=== PATIENT | male | born 1970 | race Caucasian/White ===

== ENCOUNTER 2017-01-23 10:56 | Day surgery (SDC) | payer BC ==
[2017-01-21 10:18] VITALS: BMI 27.9
[~2017-01-23 10:56] MED LIST: LACTATED RINGERS 1,000 ML IV SCH; LIDOCAINE 1% 20 ML VIAL (10MG/ML) FOR IV START INTRADERMA PRN
[2017-01-23 11:08] VITALS: TEMP 97.9
[2017-01-23] MEDS ORDERED: LIDOCAINE 1% INJ 10MG/ML (20 ML MDV) ONE (11:47)
[2017-01-23] MEDS ORDERED: GLYCOPYRROLATE 0.2 MG/ML 2 ML VIAL ONE (11:47)
[2017-01-23] MEDS ORDERED: PROPOFOL 10 MG/ML 20 ML VIAL IV ONE (11:47)
[2017-01-23] MEDS ORDERED: MIDAZOLAM 2 MG/2 ML VIAL ONE (11:47)
--- NOTE | 2017-01-23 11:58 | P.PCN ---
Date of Procedure: 01/23/17 Procedure(s) Performed: BRIEF HISTORY: Patient is a 46-year-old, pleasant, , scheduled for an upper endoscopy with a possible dilation as a part of evaluation of intermittent dysphagia to solids for the last 5 years duration. PROCEDURE PERFORMED: Esophagogastroduodenoscopy with biopsy. PREOPERATIVE DIAGNOSIS: Intermittent dysphagia to solids or 5 years from IV sedation per anesthesia. PROCEDURE: After informed consent was obtained, the patient was brought into the endoscopy unit. IV sedation was administered by Anesthesia under continuous monitoring. Initially the Olympus GIF-140 video endoscope was inserted into the mouth. Esophagus intubated without any difficulty. It was gradually advanced into the stomach and duodenum and carefully examined. The bulb and the second part of the duodenum appeared normal. The scope at this time was withdrawn to the stomach, adequately insufflated with air, and upon careful examination, mucosa of the antrum, had mild patchy areas of erythema and biopsies were done from this area. The body, cardia and the fundus appeared normal. The scope was then withdrawn into the esophagus. The GE junction was located at 39 cm from the incisors. There were linear erosions with thickened mucosal esophageal folds as well as longitudinal ridges, furrows and circumferential rings involving the entire esophagus consistent with eosinophilic esophagitis and multiple biopsies were done from this area. The proximal esophagus was normal and the patient tolerated the procedure well. IMPRESSION: 1. Mucosal fold thickening with longitudinal ridges and furrows involving the mid and distal esophagus consistent with eosinophilic esophagitis status post multiple biopsies. 2. No esophageal stricture 3. Mild antral gastritis. RECOMMENDATIONS: The findings of this examination were discussed with the patient as well as his family. He was advised to follow with the biopsy results. At this time he will be started on Prilosec 20 mg twice daily and he' ll be seen in office in 2 weeks.
[2017-01-23 12:32] VITALS: BP 110/67; PULSE 78; RESP 16
== END 2017-01-23 13:05 | disposition home or self-care (01) ==
LOC: ORWHC2ENDO 10:56
PROVIDERS: ATTEND Internal Medicine Gastroenterology
DX: K21.0 Gastro-esophageal reflux disease with esophagitis (principal); K29.50 Unspecified chronic gastritis without bleeding; R13.10 Dysphagia, unspecified; Z79.899 Other long term (current) drug therapy; Z79.1 Long term (current) use of non-steroidal anti-inflammatories (NSAID)
CPT/HCPCS: 88305; 88312; 88342; 43239; J2250; J2001; J2704

== ENCOUNTER → 2020-06-09 | Outpatient (CLI) | payer OTHER ==
--- NOTE | 2020-06-09 12:20 | XR ---
EXAMINATION TYPE: XR orbit detect foreign body DATE OF EXAM: 06/09/2020 COMPARISON: NONE HISTORY: XR orbit detect foreign body TECHNIQUE: 3 view ORBIT FINDINGS: No radiopaque foreign body seen IMPRESSION: The patient is cleared for MRI
== END | disposition home or self-care (01) ==
LOC: RADXRMAIN 11:51
PROVIDERS: ATTEND Physician Assistant
DX: M25.521 Pain in right elbow (principal); M25.511 Pain in right shoulder; S46.101A Unspecified injury of muscle, fascia and tendon of long head of biceps, right arm, initial encounter; Z18.10 Retained metal fragments, unspecified
CPT/HCPCS: 70030

== ENCOUNTER → 2021-01-06 | Outpatient (CLI) | payer OTHER ==
--- NOTE | 2021-01-06 12:10 | EST ---
EXERCISE STRESS AGE: 50 SEX: M HT: 5'10" WT: 206 lbs. PROTOCOL: James STAGE: 4 DURATION OF EXERCISE: 10:00 HEART RATE REST: 73 BLOOD PRESSURE REST: 125/85 MAXIMUM HEART RATE ACHIEVED: 157 MAXIMUM BLOOD PRESSURE: 207/65 85% MPHR: 144 100% MPHR: 169 METS: 12.1 INDICATIONS: Chest pain. CLINICAL INFORMATION: Baseline rhythm is sinus mechanism rate of 73, normal axis and intervals, early transition. Baseline blood pressure 125/85 mmHg. Patient exercised on James protocol for 10 minute reaching a peak rate of 157 beats per minute which is equal to 93% maximum predicted heart rate. Peak blood pressure 207/65 mmHg. Test was terminated secondary to fatigue. No chest pain. Electrocardiograph monitoring revealed no evidence of diagnostic ischemic ST deviation. CONCLUSION: 1. Good exercise tolerance with no symptoms of chest pain. 2. Normal electrocardiograph response to exercise with no evidence of exercise induced ischemia. MMODL / IJN: [id number] /
== END | disposition home or self-care (01) ==
LOC: RADNMMAIN 08:25
PROVIDERS: ATTEND Family Medicine
DX: R07.9 Chest pain, unspecified (principal)
CPT/HCPCS: 93017

== ENCOUNTER → 2021-02-17 | Day surgery (SDC) | payer OTHER ==
[2021-02-14 11:57] VITALS: BMI 29.4
[~2021-02-17] MED LIST changes: +LIDOCAINE 1% (10MG/ML) FOR IV START INTRADERMA PRN; -LIDOCAINE 1% 20 ML VIAL (10MG/ML) FOR IV START INTRADERMA PRN; +PROPOFOL 10 MG/ML 20 ML VIAL IV ONE
[2021-02-17 09:00] VITALS: TEMP 96.9
[2021-02-17 09:20] LABS: Glucose,Whole Blood 84 mg/dL (75-99)
--- NOTE | 2021-02-17 10:42 | P.PCN ---
Date of Procedure: 02/17/21 Procedure(s) Performed: Brief history: Patient is a pleasant 50-year-old white male scheduled for an elective upper endoscopy as well as colonoscopy as a part of evaluation of GERD and screening for colon cancer Procedure performed: Esophagogastroduodenoscopy with biopsy Colonoscopy and snare polypectomy Preoperative diagnosis: GERD Screening for colon cancer Anesthesia: MAC Procedure: After informed consent was obtained from the patient was brought into the endoscopy unit and IV sedation was administered by anesthesia under continuous monitoring. Initially upper endoscopy was done. The Olympus GF 160 video endoscope was inserted inserted into the mouth and esophagus intubated without any difficulty and was gradually advanced into the stomach and duodenum and carefully examined. The bulb and second part of the duodenum appeared normal. The scope was then withdrawn into the stomach adequately insufflated with air and upon careful examination the antrum and body, cardia and fundus appeared normal. The scope was then withdrawn into the esophagus. The GE junction was located at 40 cm to the incisors. It appeared regular . There were thickened esophageal folds and linear erosions in the distal esophagus consistent with LA grade B reflux esophagitis Rest of the esophagus appeared normal. Patient tolerated the procedure well. At this time the patient continued to remain sedation. Initial digital rectal examination was normal. Olympus CF 160 video colonoscope was then inserted into the rectum and gradually advanced to the cecum without any difficulty. Careful examination was performed as the scope was gradually being withdrawn. The prep was excellent. A 2 polyps noted on the ileocecal valve measuring 5 mm in size both of which removed by snare polypectomy. The cecum, ascending colon, transverse colon, descending colon, sigmoid colon and rectum appeared normal. Retroflexion was performed in the rectum and no lesions were noted. Patient tolerated the procedure well. Impression: 1. Upper endoscopy revealed thickened esophageal folds with erosions in the distal esophagus consistent with LA grade B reflux esophagitis 2. 2 polyps in the ileocecal valve 5 mm 2 polyps of ileocecal valve status post polypectomy Recommendations: Findings of this examination were discussed with the patient as well as his family. He was advised to follow with the biopsy results. If the biopsy is adenoma he can have a repeat colonoscopy in 5 years.
[2021-02-17 10:47] VITALS: RESP 16
[2021-02-17 11:21] VITALS: BP 127/86; PULSE 68
== END ==
LOC: ORWHC2ENDO 08:28
PROVIDERS: ATTEND Internal Medicine Gastroenterology
DX: Z12.11 Encounter for screening for malignant neoplasm of colon (principal); K21.00 Gastro-esophageal reflux disease with esophagitis, without bleeding; K22.10 Ulcer of esophagus without bleeding; K63.5 Polyp of colon; Z52.6 Liver donor
CPT/HCPCS: 88305; 45385; 43239; J2704

== ENCOUNTER → 2023-09-02 | Outpatient (CLI) | payer BC ==
--- NOTE | 2023-09-02 22:34 | MR ---
EXAMINATION TYPE: MR knee RT wo con DATE OF EXAM: 09/02/2023 COMPARISON: Outside right knee x-ray August 27, 2023 HISTORY: Right knee medial pain and locking for 3+ months. TECHNIQUE: Multiplanar, multisequence images of the knee is performed without IV contrast. FINDINGS: MEDIAL MENISCUS: Truncated appearance posterior horn with oblique signal extending to inferior articu lar surface. LATERAL MENISCUS: Anterior and posterior horns are intact without tear. CRUCIATE LIGAMENTS: The anterior and posterior cruciate ligaments are intact and unremarkable. COLLATERAL LIGAMENTS: The medial collateral ligament and lateral collateral ligament complex are inta ct and unremarkable. EXTENSOR MECHANISM: Visualized quadriceps and patellar tendons are intact. EFFUSION: No significant suprapatellar joint effusion. POPLITEAL CYST: No popliteal/espitia cyst. TRICOMPARTMENT SPACES: Mild tricompartment joint space loss. No significant spurring. CARTILAGE: Tricompartment articular cartilage is preserved. BONE MARROW SIGNAL: Focus of diminished T1 and increased T2 signal in the fibular head medial proxima l aspect. OTHER: No additional significant abnormality is appreciated. IMPRESSION: 1. Full-thickness tear posterior horn medial meniscus. 2. Mild tricompartment degenerative changes. 3. Small focus of abnormal bone marrow edema involving the medial aspect of the fibular head.
== END | disposition home or self-care (01) ==
LOC: RADMRIMAIN 20:00
PROVIDERS: ATTEND Orthopaedic Surgery
DX: M17.11 Unilateral primary osteoarthritis, right knee (principal); M23.321 Other meniscus derangements, posterior horn of medial meniscus, right knee

== ENCOUNTER 2023-10-10 11:42 | Day surgery (SDC) | payer BC ==
--- NOTE | 2023-10-09 13:31 | HP ---
HISTORY AND PHYSICAL DATE OF SCHEDULED SURGERY: 10/10/2023. HISTORY OF PRESENT ILLNESS: Marquez Gallegos is a 53-year-old patient who was seen with progressive right knee pain. We discussed options regarding treatment. The patient elected to proceed with right knee arthroscopy. Consent is obtained. PAST MEDICAL HISTORY: Gastroesophageal reflux disease. PAST SURGICAL HISTORY: Liver surgery. DAILY MEDICATIONS: 1. Celebrex. 2. Omeprazole. ALLERGIES: None. SOCIAL HISTORY: Denies tobacco use. PHYSICAL EVALUATION OF RIGHT KNEE: His range of motion is 0 to 130 degrees. Mild effusion. Tenderness to medial joint line. Positive medial Rickey's. Ligaments stable. Hip rotation without pain. His distal neurovascular exam is intact. IMAGING STUDIES: Radiographs of the right knee revealed mild osteoarthritis. MRI right knee revealed medial meniscal tear. IMPRESSION: 1. Internal derangement of right knee with medial meniscal tear. 2. Gastroesophageal reflux disease. PLAN: Right knee arthroscopy with partial medial meniscectomy and debridement. MMODL / IJN: [id number] /
[~2023-10-10 11:42] MED LIST changes: +DEXAMETHASONE SOD PHOSPHATE 4 MG/ML 1 ML VIAL IV ONE; +HYDROmorphone 0.5 MG/0.5 ML SYRINGE IVP PRN; -LACTATED RINGERS 1,000 ML IV SCH; +MIDAZOLAM 2 MG/2 ML VIAL IV PRN; +ONDANSETRON 4 MG/2 ML VIAL IVP ONE; -PROPOFOL 10 MG/ML 20 ML VIAL IV ONE; +fentaNYL (PF) 50 MCG/ML 2 ML AMP IVP PRN
[2023-10-10] MEDS: LACTATED RINGERS 1,000 ML IV SCH (12:05)
[2023-10-10 12:38] VITALS: TEMP 97.5
[2023-10-10] MEDS ORDERED: PROPOFOL 10 MG/ML 20 ML VIAL IV ONE (13:03)
[2023-10-10] MEDS ORDERED: KETOROLAC 15 MG/ML 1 ML VIAL ONE (13:03)
[2023-10-10] MEDS ORDERED: HYDROmorphone (PF) 1 MG/ML ONE (13:03)
[2023-10-10] MEDS ORDERED: MIDAZOLAM 2 MG/2 ML VIAL ONE (13:03)
[2023-10-10] MEDS ORDERED: fentaNYL (PF) 50 MCG/ML 2 ML AMP ONE (13:03)
[2023-10-10] MEDS ORDERED: LIDOCAINE 1% INJ 10MG/ML (20 ML MDV) ONE (13:03)
[2023-10-10] MEDS: BUPIVACAINE (PF) 0.25% 30 ML VIAL MISCELLANE ONE ×2 (13:07→13:43)
--- NOTE | 2023-10-10 14:06 | P.OP ---
Date of Procedure: 10/10/23 Preoperative Diagnosis: Internal derangement right knee Postoperative Diagnosis: 1. Tear medial and lateral meniscus right knee 2. Reactive synovitis medial, lateral and suprapatellar compartments right knee 3. Medial plica right knee Procedure(s) Performed: 1. Arthroscopic partial medial and lateral meniscectomy right knee 2. Arthroscopic partial synovectomy medial, lateral and suprapatellar compartments right knee 3. Arthroscopic resection medial plica right knee Anesthesia: PATTA, local Surgeon: Vasquez Zhao Estimated Blood Loss (ml): 6 Pathology: none sent Condition: stable Disposition: PACU Indications for Procedure: 53-year-old gentleman seen with progressive right knee pain. After having treatment options discussed, he elected to proceed with arthroscopy. Operative Findings: See description of procedure Description of Procedure: Patient was taken to the operative suite. Patient underwent a general anesthetic by the department of anesthesia. Patient was given preoperative antibiotics. The right lower extremity was placed in a well-padded arthroscopic leg rockwell. The right leg was prepped and draped in the normal sterile orthopedic fashion. A lateral parapatellar and suprapatellar incision was made. Trochars were inserted. Arthroscopy was initiated. Suprapatellar pouch revealed diffuse thick reactive synovitis. The patellofemoral joint appeared to articular congruently. There was no significant chondromalacia present. The scope was guided into the medial gutter. Was a medial plica which impinge on the medial femoral condyle with range of motion. The scope was then guided into the medial compartment. A medial parapatellar incision was made. Trocar inserted followed by probe. There was a tear involving the posterior horn of the medial meniscus. There was no significant chondromalacia. There was thick reactive situs anteriorly. I performed a partial medial meniscectomy getting down to stable meniscal tissue. I performed a partial synovectomy decompressing the reactive synovitis. The residual meniscus was probed and was found to be stable. There was good decompression of the synovitis. Scope and probe were then guided into the intercondylar notch. Cruciates were identified, probed and found to be stable. The scope and probe were then guided into lateral compartment. There was a radial tear mid bilateral meniscus. There was thick reactive synovitis anteriorly. There was no chondromalacia present. I performed a partial lateral meniscectomy getting down to stable meniscal tissue. I performed a partial synovectomy decompressing the reactive synovitis. The residual meniscus was stable. There was good decompression of the synovitis. The scope was in guided back into the suprapatellar compartment. I used a motorized shaver into the suprapatellar compartment. I resected that medial plica. I performed a partial synovectomy. The shaver was removed. I took the knee through range of motion and noted complete resection of plica with no more impingement. There was good decompression of the synovitis. I took 1 more look around the entire knee, no residual debris. Instruments were now removed from the joint. The joint was infiltrated with .25% Marcaine. Steri-Strips were applied to the portal sites. Sterile dressings were applied. The patient was placed into a LINDA hose. No tourniquet was utilized. The patient was awakened, transferred to a bed and taken to recovery stable satisfactory condition.
[2023-10-10 14:17] VITALS: RESP 16
[2023-10-10 14:50] VITALS: BP 129/80; PULSE 52
== END 2023-10-10 15:25 | disposition home or self-care (01) ==
LOC: OR 11:42
PROVIDERS: ATTEND Orthopaedic Surgery
DX: S83.241A Other tear of medial meniscus, current injury, right knee, initial encounter (principal); S83.281A Other tear of lateral meniscus, current injury, right knee, initial encounter; M67.51 Plica syndrome, right knee; M65.161 Other infective (teno)synovitis, right knee; K21.9 Gastro-esophageal reflux disease without esophagitis; Z79.899 Other long term (current) drug therapy; X58.XXXA Exposure to other specified factors, initial encounter
CPT/HCPCS: 29880; J2250; J0690; J2001; J3010; J1170; J1885; J2704; J0665

== ENCOUNTER 2024-08-24 21:37 | Emergency (ER) | payer BC ==
--- NOTE | 2024-08-24 21:59 | ED ---
General Adult HPI - General Chief complaint: ENT Stated complaint: Foreign object in throat Time Seen by Provider: 08/24/24 21:48 Source: patient, RN notes reviewed, old records reviewed Mode of arrival: ambulatory Limitations: no limitations - History of Present Illness Initial comments: 53-year-old male presenting for evaluation of suspected esophageal food impaction. Patient was eating tough steak about 60 minutes prior to arrival. He states he felt to get stuck in the central chest. He has been unable to swallow liquids since this time. He is had some issues in the past with esophagitis and has followed with GI. Patient is currently on omeprazole. He states he has had upper endoscopy in the past which he states was several years ago. No other reported symptoms. - Related Data Home Medications Medication Instructions Recorded Confirmed Cholecalciferol [Vitamin D3 (25 25 mcg PO DAILY 02/14/21 10/10/23 Mcg = 1000 Iu)] Celecoxib [CeleBREX] 200 mg PO DAILY 10/09/23 10/10/23 Mirtazapine [Remeron] 30 mg PO HS 10/09/23 10/10/23 Omeprazole [PriLOSEC] 20 mg PO AC-SUPPER 10/09/23 10/10/23 Previous Rx's Medication Instructions Recorded HYDROcodone/APAP 5-325MG [Bishop 1 tab PO Q6HR PRN #12 tab 10/10/23 5-325] Allergies Allergy/AdvReac Type Severity Reaction Status Date / Time No Known Allergies Allergy Verified 08/24/24 21:41 Review of Systems ROS Statement: Those systems with pertinent positive or pertinent negative responses have been documented in the HPI. ROS Other: All systems not noted in ROS Statement are negative. Past Medical History Past Medical History: GERD/Reflux, Musculoskeletal Disorder Additional Past Medical History / Comment(s): donated part of liver to brother 5 yrs. ago History of Any Multi-Drug Resistant Organisms: None Reported Past Surgical History: No Surgical Hx Reported Additional Past Surgical History / Comment(s): liver surg. to donate part of liver Past Anesthesia/Blood Transfusion Reactions: No Reported Reaction Additional Past Anesthesia/Blood Transfusion Reaction / Comment(s): NO PRIOR SX HX Past Psychological History: No Psychological Hx Reported Smoking Status: Never smoker Past Alcohol Use History: None Reported Past Drug Use History: None Reported - Past Family History Mother Family Medical History: No Reported History General Exam Limitations: no limitations General appearance: alert, in no apparent distress Head exam: Present: atraumatic, normocephalic Eye exam: Present: normal appearance, PERRL ENT exam: Present: normal exam Neck exam: Present: normal inspection. Absent: tenderness Respiratory exam: Present: normal lung sounds bilaterally. Absent: respiratory distress, wheezes, stridor Cardiovascular Exam: Present: regular rate, normal rhythm GI/Abdominal exam: Present: soft. Absent: distended, tenderness Extremities exam: Present: normal inspection, normal capillary refill Neurological exam: Present: alert, oriented X3, CN II-XII intact. Absent: motor sensory deficit Psychiatric exam: Present: anxious Skin exam: Present: warm, dry, intact Course Vital Signs 08/24/24 08/24/24 08/25/24 21:38 22:26 00:47 Temperature 97.3 F L 98.3 F Pulse Rate 79 72 78 Respiratory 18 18 20 Rate Blood Pressure 169/90 161/85 131/81 O2 Sat by Pulse 95 92 L 93 L Oximetry 08/25/24 02:48 Temperature Pulse Rate 62 Respiratory Rate Blood Pressure O2 Sat by Pulse 96 Oximetry - Reevaluation(s) Reevaluation #1: 08/25/24 04:21 Patient reevaluated multiple times, persistent inability to swallow liquids suggestive of persistent esophageal food impaction. Medical Decision Making - Medical Decision Making Was pt. sent in by a medical professional or institution (, PA, ANIMAL CONTROL OFFICER, urgent care, hospital, or prison...) When possible be specific @ -No Did you speak to anyone other than the patient for history (EMS, parent, family, police, friend...)? What history was obtained from this source @ -No Did you review nursing and triage notes (agree or disagree)? Why? @ -I reviewed and agree with nursing and triage notes Were old charts reviewed (outside hosp., previous admission, EMS record, old EKG, old radiological studies, urgent care reports/EKG's, prison records)? Report findings @ -No old charts were reviewed Differential Abdominal Pain Men: Appendicitis, cholecystitis, diverticulosis, ischemic bowel, pancreatitis, hepatitis, UTI, gastroenteritis, AAA, incarcerated hernia, bowel obstruction, constipation, inflammatory bowel, hepatitis, peptic ulcer disease, splenic infarction, perforated viscus, testicular torsion, this is not meant to be an all-inclusive list EKG interpreted by me (3pts min.). @ -As above X-rays interpreted by me (1pt min.). @ -None done CT interpreted by me (1pt min.). @ -None done U/S interpreted by me (1pt. min.). @ -None done What testing was considered but not performed or refused? (CT, X-rays, U/S, labs)? Why? @ -None What meds were considered but not given or refused? Why? @ -None Did you discuss the management of the patient with other professionals (professionals i.e. , PA, ANIMAL CONTROL OFFICER, lab, RT, psych nurse, public health social worker, noxious weeds and pest inspector, teacher, flight deck officer, pillowcase cutter)? Give summary @ -Case discussed with transfer team at [facility], Dr. Santos has excepted transfer covering for gastroenterology Was smoking cessation discussed for >3mins.? @ -No Was critical care preformed (if so, how long)? @ -No Were there social determinants of health that impacted care today? How? (Homelessness, low income, unemployed, alcoholism, drug addiction, transportation, low edu. Level, literacy, decrease access to med. care, alf, rehab)? @ -No Was there de-escalation of care discussed even if they declined (Discuss DNR or withdrawal of care, Hospice)? DNR status @ -No What co-morbidities impacted this encounter? (DM, HTN, Smoking, COPD, CAD, Cancer, CVA, ARF, Chemo, Hep., AIDS, mental health diagnosis, sleep apnea, morbid obesity)? @ -Esophagitis Was patient admitted / discharged? Hospital course, mention meds given and route, prescriptions, significant lab abnormalities, going to OR and other pertinent info. @53-year-old male with inability to swallow solids or liquids after a bolus of steak. Patient given multiple rounds of medication including glucagon, Valium, pain medication, Protonix and Zofran. Attempts to pass esophageal food bolus are unsuccessful and the patient ultimately requires transfer to hospital with gastroenterology. Transfer to [facility]. Undiagnosed new problem with uncertain prognosis? @ -No Drug Therapy requiring intensive monitoring for toxicity (Heparin, Nitro, Insulin, Cardizem)? @ -No Were any procedures done? @ -No Diagnosis/symptom? @ -Esophageal food impaction Acute, or Chronic, or Acute on Chronic? @ -Acute Uncomplicated (without systemic symptoms) or Complicated (systemic symptoms)? @ -Default Side effects of treatment? @ -No Exacerbation, Progression, or Severe Exacerbation? @ -No Poses a threat to life or bodily function? How? (Chest pain, [place], [place], pneumonia, PE, COPD, DKA, ARF, appy, cholecystitis, CVA, Diverticulitis, Homicidal, Suicidal, threat to staff... and all critical care pts) @ -Yes, dehydration, electrolyte abnormality Disposition Clinical Impression: Food impaction of esophagus Disposition: OTHER INSTITUTION NOT DEFINED Condition: Stable Is patient prescribed a controlled substance at d/c from ED?: No Referrals: Hector Kimble MD [Primary Care Provider] - 1-2 days Time of Disposition: 04:23 - Out of Hospital Transfer - Req. Specs Out of Hospital Transfer - Requested Specifics: Other Emergency Center (Transfer to [facility])
[2024-08-24] MEDS: GLUCAGON 1 MG/ML VIAL IVP STA (22:05)
[2024-08-24] MEDS: SODIUM CHLORIDE 0.9% 500 ML 500 ML IV ONE (22:46)
[2024-08-24] MEDS: PANTOPRAZOLE 40 MG/10 ML VIAL IVP STA (22:49)
[2024-08-24] MEDS: ONDANSETRON 4 MG/2 ML VIAL IVP STA (22:51)
[2024-08-24] MEDS: HYDROmorphone 0.5 MG/0.5 ML SYRINGE IVP STA (23:29)
[2024-08-25 00:50] VITALS: TEMP 98.3
[2024-08-25] MEDS: GLUCAGON 1 MG/ML VIAL IVP STA (00:55)
[2024-08-25] MEDS: HYDROmorphone 1 MG/ML 1 ML SYRINGE IVP STA (05:10)
[2024-08-25 05:20] LABS: Glucose,Whole Blood 112 mg/dL (70-110)
[2024-08-25 05:22] VITALS: BP 129/79; PULSE 65; RESP 18
== END 2024-08-25 07:06 | disposition other institution (70) ==
LOC: EC 21:37
DX: T18.128A Food in esophagus causing other injury, initial encounter (principal); K20.90 Esophagitis, unspecified without bleeding; W44.F3XA Food entering into or through a natural orifice, initial encounter
CPT/HCPCS: 36415; 99284; 96374; 96375; 96361 ×2; 96376 ×2; J1610 ×2; J3360; J2405; J1171 ×2; J2470